=== PATIENT | male | born 1945 | race Caucasian/White ===

== ENCOUNTER 2017-06-29 10:17 | Observation (INO) | payer OTHER ==
[~2017-06-29] VITALS: Ht 170.2 cm; Wt 85.7 kg
[~2017-06-29 10:17] MED LIST: ECOTRIN325 MG PO; [UNRECOGNIZED DRUG - REMARK]
[2017-06-29] MEDS ORDERED: ASPIRIN 81 MG CHEW TAB PO ONE (10:45)
[2017-06-29] MEDS ORDERED: CRESTOR10 MG PO (10:50)
[2017-06-29] MEDS ORDERED: VITAMIN D31000 UNIT PO (10:50)
[2017-06-29] MEDS ORDERED: AMLODIPINE BESYL5 MG PO (10:50)
[2017-06-29] MEDS ORDERED: LEVOTHYROXINE50 MCG PO (10:50)
[2017-06-29] MEDS ORDERED: HYDRALAZINE HCL25 MG PO (10:50)
[2017-06-29] MEDS ORDERED: CARVEDILOL12.5 MG PO (10:50)
[2017-06-29] MEDS ORDERED: ASPIR 8181 MG PO (10:50)
[2017-06-29] MEDS ORDERED: JANTOVEN6 MG PO (10:50)
[2017-06-29] MEDS ORDERED: OMEPRAZOLE20 M1 PO (10:50)
--- NOTE | 2017-06-29 11:12 | Diagnostic Imaging Report ---
PROCEDURE: A single AP view of the chest. COMPARISON: 09/06/12 INDICATIONS: LEFT SIDED CHEST PAIN FINDINGS: Lines/tubes: None. Lungs: The lungs are well inflated and clear. There is no evidence of pneumonia or pulmonary edema. Pleura: There is no pleural effusion or pneumothorax. Heart and mediastinum: Unchanged enlarged cardiomediastinal silhouette. Median sternotomy wires are again seen. Bones: No acute bony abnormality. IMPRESSION: No acute cardiopulmonary disease. No change from prior exam. Dictated by: Shawn Nguyen M.D. on 06/29/2017 at 11:13 Electronically approved by: Shawn Nguyen M.D. on 06/29/2017 at 11:13
[2017-06-29 11:21] LABS: BASOPHILS % 0.4 % (0.0-1.0); EOSINOPHILS # (AUTO) 0.1 (0.0-0.4); EOSINOPHILS % 1.1 % (0.0-6.0); HEMATOCRIT 41.1 % (38.2-49.6); HEMOGLOBIN 14.1 g/dL (14.0-18.0); LYMPHOCYTES # (AUTO) 1.5 (1.0-3.2); LYMPHOCYTES % 20.1 % (18.0-39.1); MEAN CORPUSCULAR HEMOGLOBIN 28.8 pg (28-32); MEAN CORPUSCULAR HGB CONC 34.3 g/dL (31-35); MEAN CORPUSCULAR VOLUME 83.9 fL (81-99); MONOCYTES # (AUTO) 0.5 (0.2-0.8); MONOCYTES % 6.5 % (4.4-11.3); NEUTROPHILS # (AUTO) 5.3 (2.1-6.9); NEUTROPHILS % 71.8 % (38.7-80.0); PLATELET COUNT 266 x10e3/uL (140-360); RED CELL DISTRIBUTION WIDTH 14.3 % (11.7-14.4)
[2017-06-29 11:39] LABS: INR 2.01; PARTIAL THROMBOPLASTIN TIME 39.6 seconds (23.8-35.5); PROTHROMBIN TIME 21.4 seconds (11.9-14.5)
[2017-06-29 11:49] LABS: ALANINE AMINOTRANSFERASE 27 IU/L (0-55); ALBUMIN 3.3 g/dL (3.5-5.0); ALBUMIN/GLOBULIN RATIO 0.9 (0.8-2.0); ALKALINE PHOSPHATASE 85 IU/L (40-150); BLOOD UREA NITROGEN 27 mg/dL (7-26); BUN/CREATININE RATIO 11 (6-25); CARBON DIOXIDE 21 mmol/L (22-29); CHLORIDE 105 mmol/L (98-107); CREATINE KINASE 46 IU/L (30-200); CREATININE, SERUM 2.43 mg/dL (0.72-1.25); EST GLOMERULAR FILTRATION RATE 26 ML/MIN (60-); GLUCOSE 174 mg/dL (74-118); SODIUM 137 mmol/L (136-145)
[2017-06-29] MEDS ORDERED: MORPHINE SULFATE 2 MG/ML SYR IV PRN (14:00)
[2017-06-29] MEDS ORDERED: NITROGLYCERIN 0.4 MG SUBL SL PRN (14:00)
[2017-06-29] MEDS ORDERED: SODIUM CHLORIDE FLUSH 10 ML SYR INJ PRN (14:00)
[2017-06-29] MEDS ORDERED: ONDANSETRON HCL INJ 2 MG/ML VIAL IV PRN (14:00)
[2017-06-29] MEDS: FAMOTIDINE 20 MG TAB PO SCH ×2 (14:55→21:00)
--- OUTSIDE RECORDS SUMMARY | 2017-06-29 15:16 | XMS REPORT ---
Author Author [facility] Address Unknown Phone Unavailable Care Team Providers Care [employer] Specialist Name Role Phone BIJU KING Unavailable Unavailable Problems This patient has no known problems. Allergies, Adverse Reactions, Alerts This patient has no known allergies or adverse reactions. Medications This patient has no known medications. Results Test Description Test Time Test Comments Text Results Atomic Results Result Comments CHEST SINGLE (PORTABLE) [place] [id number] Patient Name: GLENDY PETERS MR #: [id number] : 1945 Age/Sex: 71/M Req #: [id number] Adm Physician: Ordered by: BIJU KING MD Report #: [id number] Location: ER Room/Bed: Procedure: [id number] DX/CHEST SINGLE (PORTABLE) Exam Date: 06/29/17 Exam Time: 1050 REPORT STATUS: Signed PROCEDURE: A single AP view of the chest. COMPARISON: 09/06/12 INDICATIONS: LEFT SIDED CHEST PAIN FINDINGS: Lines/tubes: None. Lungs: The lungs are well inflated and clear. There is no evidence of pneumonia or pulmonary edema. Pleura: There is no pleural effusion or pneumothorax. Heart and mediastinum: Unchanged enlarged cardiomediastinal silhouette. Median sternotomy wires are again seen. Bones: No acute bony abnormality. IMPRESSION: No acute cardiopulmonary disease. No change from prior exam. Dictated by: Shawn Nguyen M.D. on 06/29/2017 at 11:13 Electronically approved by: Shawn Nguyen M.D. on 06/29/2017 at 11 :13 Dictated By: SHAWN NGUYEN MD [id number] Transcribed By: ANA on 06/29/17 1113 COPY TO: BIJU KING MD
[2017-06-29 17:02] LABS: CREATINE KINASE 44 IU/L (30-200)
[2017-06-29] MEDS: NITROGLYCERIN 2% OINT 1 GM PKT TOP SCH (17:40)
[2017-06-29 20:47] VITALS: BP 184/88
[2017-06-29 20:51] VITALS: BP 184/88
[2017-06-29 21:06] VITALS: BP 184/88
[2017-06-29 21:16] VITALS: BP 184/88
[2017-06-29 21:48] VITALS: BP 149/85
[2017-06-30] VITALS (7 sets, daily range): BP systolic 130–190; BP diastolic 56–92
[2017-06-30] MEDS: NITROGLYCERIN 2% OINT 1 GM PKT TOP SCH ×2 (04:56)
[2017-06-30 06:53] LABS: BASOPHILS % 0.3 % (0.0-1.0); EOSINOPHILS # (AUTO) 0.1 (0.0-0.4); EOSINOPHILS % 0.8 % (0.0-6.0); HEMATOCRIT 41.5 % (38.2-49.6); HEMOGLOBIN 14.4 g/dL (14.0-18.0); LYMPHOCYTES # (AUTO) 2.1 (1.0-3.2); MEAN CORPUSCULAR HEMOGLOBIN 29.1 pg (28-32); MEAN CORPUSCULAR HGB CONC 34.7 g/dL (31-35); MONOCYTES # (AUTO) 0.8 (0.2-0.8); MONOCYTES % 8.6 % (4.4-11.3); NEUTROPHILS # (AUTO) 6.1 (2.1-6.9); NEUTROPHILS % 67.1 % (38.7-80.0); PLATELET COUNT 274 x10e3/uL (140-360); RED BLOOD COUNT 4.94 x10e6/uL (4.3-5.7); RED CELL DISTRIBUTION WIDTH 14.2 % (11.7-14.4)
[2017-06-30 07:24] LABS: ANION GAP 16.9 mmol/L (8-16); BLOOD UREA NITROGEN 30 mg/dL (7-26); BUN/CREATININE RATIO 12 (6-25); CALCIUM 10.1 mg/dL (8.4-10.2); CARBON DIOXIDE 20 mmol/L (22-29); CHLORIDE 106 mmol/L (98-107); CHOLESTEROL 270 MD/DL (0-199); CREATINE KINASE 69 IU/L (30-200); CREATININE, SERUM 2.54 mg/dL (0.72-1.25); EST GLOMERULAR FILTRATION RATE 25 ML/MIN (60-); GLUCOSE 100 mg/dL (74-118); HDL CHOLESTEROL 27 MG/DL (40-60); POTASSIUM 3.9 mmol/L (3.5-5.1); SODIUM 139 mmol/L (136-145); TRIGLYCERIDES 695 MG/DL (0-149)
[2017-06-30] MEDS ORDERED: HYDRALAZINE HCL 20 MG/ML VIAL IV PRN (08:30)
[2017-06-30] MEDS ORDERED: PANTOPRAZOLE SOD 40 MG TABEC PO SCH (09:00)
[2017-06-30] MEDS ORDERED: SIMVASTATIN 40 MG TAB PO SCH (09:00)
[2017-06-30] MEDS ORDERED: CARVEDILOL 12.5 MG TAB PO SCH (09:00)
[2017-06-30] MEDS ORDERED: LEVOTHYROXINE SODIUM 50 MCG TAB PO SCH (09:00)
[2017-06-30] MEDS ORDERED: CHOLECALCIFEROL PO SCH (09:00)
[2017-06-30] MEDS ORDERED: AMLODIPINE BESYLATE 5 MG TAB PO SCH (09:00)
--- NOTE | 2017-06-30 09:45 | Consultation ---
DATE OF CONSULTATION: June 29, 2017 CARDIOLOGY CONSULTATION REASON FOR CONSULTATION: Chest pain and severe carotid disease. HPI: This is a 71-year-old male that presented with chest pain. According to the patient, yesterday he started having left substernal chest pain that felt like a pressure on a scale of 10/10 that he decided to come into the emergency room for evaluation. He stated that the chest pain was accompanied with shortness of breath and dizziness. He has been going through a lot of stress lately. He was having dizziness. Saw his PC and sociology professor, Dr. Perez and they did a bilateral carotid Doppler, and found out that he had severe carotid disease, 100% and 97%. He was referred to surgeon, Dr. Chauhan at the [facility] for possible surgery. He also stated it has been 6 weeks now. He had not heard anything from the surgeon if they are going to do the surgery or not. He is getting stressed up, and his blood pressure was going up. He started having all this chest pain. His troponin was negative. EKG showed normal sinus rhythm with PACs. No S/T abnormalities noted. PAST MEDICAL HISTORY: CKD, AFib, hyperlipidemia, hypothyroidism, severe carotid stenosis, bilateral, hypertension, and anxiety. PAST SURGICAL HISTORY: Open heart surgery, cholecystectomy, cataract surgery, multiple cardiac catheterizations with no stents. FAMILY HISTORY: Positive for CAD. SOCIAL HISTORY: No smoking. No drinking. Lives at home with family. MEDICATIONS: He was on Norvasc, aspirin, Coreg, vitamin D3, hydralazine, levothyroxine, omeprazole, Crestor, Coumadin. ALLERGIES: HE IS NOT ALLERGIC TO ANY MEDICATION. REVIEW OF SYSTEMS: Negative except those mentioned above. PHYSICAL EXAMINATION VITAL SIGNS: Temperature 97, heart rate 72, blood pressure 187/92, respirations 22, oxygen saturation 95% on 2 L nasal cannula. GENERAL: He is awake, alert and oriented times 3. HEENT: Mucous membrane moist. NECK: Supple. LUNGS: Bilateral clear to auscultation. CARDIOVASCULAR: S1 and S2 present. ABDOMEN: Soft. NEUROLOGICAL: Intact. He is able to move all extremities. EXTREMITIES: Bilateral lower extremities with no edema. LABS: Sodium 139, potassium 3.9, chloride 106, CO2 20, BUN 30, creatinine 2.54, glucose 100. White blood cell 9.04, hemoglobin 14.4, hematocrit 41.5, and platelets 274,000. PT 21.4, PTT 39.6 and INR 2.01. IMPRESSION 1. Chest pain. 2. Severe bilateral carotid stenosis. 3. History of atrial fibrillation. 4. Coronary artery disease with coronary artery bypass graft. 5. Uncontrolled hypertension. 6. Hypothyroidism. 7. Chronic kidney disease. 8. Anxiety. ASSESSMENT AND PLAN 1. Will go ahead and get an echocardiogram to assess the LV and the valve function. 2. Troponin was negative times 3. 3. We are going to resume his home medications, including Coumadin and aspirin. 4. We are going to try to control his blood pressure. 5. Will get the report from the sociology professor and the surgeon to see if they have gone with his surgical procedure, and may be possible transfer to the [facility] to proceed with that. Further cardiac workup pending clinical course. Thank you for this consultation. DICTATED BY ABHAY ATWOOD NP Job#: [id number] KUSH KILLIAN
--- NOTE | 2017-06-30 09:59 | History and Physical ---
CHIEF COMPLAINT: Chest pain and carotid disease. HISTORY: A 71-year-old male who has bilateral carotid disease. He has a history of right carotid endarterectomy years ago. He needed revision of the right. He has a blockage of the left of 100%, which no surgery is planned. The patient came in with chest pain, but more importantly he was more worried about his blood pressure, which was elevated at 180/90 systolic. The patient does have baseline atrial fibrillation and coronary disease with previous bypass surgery. He is stable at this time. Blood pressure control needed. PAST MEDICAL HISTORY: Hypertension, coronary disease, AFib, on anticoagulant with Coumadin, chronic kidney disease, stage 3, hypothyroidism. PAST SURGICAL HISTORY: Right carotid endarterectomy and bypass surgery. SOCIAL HISTORY: The patient does not smoke or use alcohol. No regular drugs. ALLERGIES: NO KNOWN ALLERGIES. HOME MEDICATIONS: List reviewed. REVIEW OF SYSTEMS: As mentioned above. PHYSICAL EXAMINATION VITAL SIGNS: Temperature is 98, blood pressure 187/92, pulse rate 72, respirations 18. GENERAL: The patient is not in acute distress. He is awake. HEENT: Normocephalic, atraumatic and anicteric. NECK: Supple grossly. PULMONARY: Clear. CARDIOVASCULAR: Regular rate and rhythm. ABDOMEN: Soft and unremarkable. EXTREMITIES: No cyanosis or edema. NEUROLOGIC: No focal deficit. LABORATORY: BUN and creatinine are 30 and 2.5. INR is 2.01. IMPRESSION 1. Chest pain, atypical. 2. Carotid disease. 3. Anticoagulant therapy for atrial fibrillation. 4. Hypertensive urgency. PLAN: Adjust the patient's home medications. May continue with blood thinner. Will monitor the patient closely. Discontinue Norvasc. Add on nifedipine XL 60 mg daily. Coreg change to once a day to twice a day. Imdur 30 mg daily. Continue with other medications. Job#: [id number] KUSH
[2017-06-30] MEDS ORDERED: NIFEDIPINE CR 30 MG TAB PO ONE (10:00)
[2017-06-30] MEDS: HYDRALAZINE HCL 25 MG TAB PO SCH ×3 (10:13→21:00)
[2017-06-30] MEDS: ASPIRIN 81 MG ENTERIC COATED PO SCH (10:13)
[2017-06-30] MEDS: FAMOTIDINE 20 MG TAB PO SCH ×2 (10:13→21:34)
[2017-06-30] MEDS: ISOSORBIDE MONONITRATE 30 MG TAB CR PO SCH (10:18)
[2017-06-30] MEDS ORDERED: ONDANSETRON HCL 4 MG ORAL DISINTEGRATING TAB SL PRN (13:45)
[2017-06-30 14:52] LABS: INR 1.51; PROTHROMBIN TIME 17.1 seconds (11.9-14.5)
[2017-06-30 15:07] LABS: CREATINE KINASE MB 0.9 ng/mL (0-5.0)
[2017-06-30] MEDS: CARVEDILOL 12.5 MG TAB PO SCH (16:53)
[2017-06-30] MEDS ORDERED: WARFARIN SOD 3 MG TAB PO SCH (17:00)
[2017-06-30] MEDS ORDERED: TEMAZEPAM 15 MG CAP PO PRN (21:00)
[2017-07-01] VITALS: BP 140/57
[2017-07-01 04:00] VITALS: BP 116/54
[2017-07-01] MEDS: NIFEDIPINE CR 30 MG TAB PO SCH ×2 (06:00→09:25)
[2017-07-01] MEDS ORDERED: LEVOTHYROXINE SODIUM 50 MCG TAB PO SCH (06:00)
[2017-07-01 07:31] VITALS: BP 154/73
[2017-07-01] MEDS ORDERED: PANTOPRAZOLE SOD 40 MG TABEC PO SCH ×2 (09:00)
[2017-07-01] MEDS: ISOSORBIDE MONONITRATE 30 MG TAB CR PO SCH (09:25)
[2017-07-01] MEDS: ASPIRIN 81 MG ENTERIC COATED PO SCH (09:25)
[2017-07-01] MEDS: HYDRALAZINE HCL 25 MG TAB PO SCH (09:25)
[2017-07-01] MEDS: FAMOTIDINE 20 MG TAB PO SCH (09:25)
[2017-07-01] MEDS: CARVEDILOL 12.5 MG TAB PO SCH (09:26)
--- NOTE | 2017-07-01 13:09 | Discharge Summary ---
PCP: Dr. Jose G Wilkins. GRAIN DRIER: Dr. Woodrow Martin. FINAL DIAGNOSES 1. Hypertensive urgency. 2. Baseline carotid stenosis pending surgical intervention in July. SUMMARY: A 71-year-old male came in with chest pain but more hypertensive urgency. Patient has had blood pressure problem for the past month or so and medication has been adjusted but the patient did not have any improvement. His medication is adjusted now. His systolic blood pressure 200, now down to 154. Medication adjusted. Patient will stop the Norvasc. He will increase his Coreg to 12.5 mg twice a day instead of once a day. Add on nifedipine 60 mg once a day and Imdur 30 mg daily. Patient has no chest pain. He is comfortable. Lab work otherwise unremarkable. Baseline chronic kidney disease stage 2 to 3. The patient will follow up with his PCP, Dr. Jose G Wilkins, for adjustment of his medication. Currently he will be discharged home with the following medications: Coreg 12.5 mg twice a day instead of once a day. Imdur 30 mg daily. Nifedipine XL 60 mg daily. The patient will stop the Norvasc. Patient will continue with anticoagulant therapy. Patient stable for discharge home today. Job#: [id number] KAYLA
[2017-07-01] MEDS ORDERED: SIMVASTATIN 20 MG TAB PO SCH (21:00)
== END 2017-07-01 09:46 | disposition home or self-care (01) ==
LOC: ER 10:17 → ERHOLD 15:13 → IMCU 18:05
PROVIDERS: ADMIT Internal Medicine; ATTEND Internal Medicine
DX: R07.89 Other chest pain (principal); I16.0 Hypertensive urgency; I65.23 Occlusion and stenosis of bilateral carotid arteries; I48.91 Unspecified atrial fibrillation; Z79.01 Long term (current) use of anticoagulants; I10 Essential (primary) hypertension; Z95.1 Presence of aortocoronary bypass graft; I25.811 Atherosclerosis of native coronary artery of transplanted heart without angina pectoris; F41.9 Anxiety disorder, unspecified; N18.3 Chronic kidney disease, stage 3 (moderate)
CPT/HCPCS: 36415 ×2; 71045; 80048; 80053; 80061; 82550 ×2; 82553 ×2; 83880; 84484 ×2; 85025 ×2; 85379; 85610 ×2; 85730; 93005; 93306; 99284; G0378 ×3; J0360

== ENCOUNTER → 2021-01-28 | Outpatient (CLI) | payer OTHER ==
[~2021-01-28] MED LIST changes: +AMLODIPINE BESYL5 MG PO; +ASPIR 8181 MG PO; +CARVEDILOL12.5 MG PO; +CRESTOR10 MG PO; +HYDRALAZINE HCL25 MG PO; +JANTOVEN6 MG PO; +LEVOTHYROXINE50 MCG PO; +OMEPRAZOLE20 M1 PO; +VITAMIN D31000 UNIT PO
[2021-01-28 16:53] LABS: BASOPHILS % 0.3 % (0.0-1.0); EOSINOPHILS # (AUTO) 0.2 (0.0-0.4); EOSINOPHILS % 2.6 % (0.0-6.0); HEMATOCRIT 28.4 % (38.2-49.6); HEMOGLOBIN 8.8 g/dL (14.0-18.0); LYMPHOCYTES # (AUTO) 0.9 (1.0-3.2); LYMPHOCYTES % 13.5 % (18.0-39.1); MEAN CORPUSCULAR HEMOGLOBIN 28.9 pg (28-32); MEAN CORPUSCULAR VOLUME 93.4 fL (81-99); MONOCYTES # (AUTO) 0.8 (0.2-0.8); MONOCYTES % 11.9 % (4.4-11.3); NEUTROPHILS # (AUTO) 4.8 (2.1-6.9); PLATELET COUNT 224 x10e3/uL (140-360); RED BLOOD COUNT 3.04 x10e6/uL (4.3-5.7); RED CELL DISTRIBUTION WIDTH 18.4 % (11.7-14.4)
== END ==
LOC: LAB 16:35
PROVIDERS: ATTEND Family Medicine
DX: D50.0 Iron deficiency anemia secondary to blood loss (chronic) (principal)
CPT/HCPCS: 36415; 85025